=== PATIENT | male | born 1985 | race Caucasian/White ===

== ENCOUNTER 2019-03-15 08:00 | Emergency (ER) | payer OTHER, BC ==
[~2019-03-15] VITALS: Ht 182.9 cm; Wt 111.1 kg
[~2019-03-15 08:00] MED LIST: DIVA500EC; Percocet 10-321 EACH PO
[2019-03-15] MEDS ORDERED: Percocet 5-3251 EACH PO (09:38)
== END 2019-03-15 09:55 | disposition home or self-care (01) ==
LOC: ER 08:00
DX: S43.015A Anterior dislocation of left humerus, initial encounter (principal); W19.XXXA Unspecified fall, initial encounter; Z79.899 Other long term (current) drug therapy
CPT/HCPCS: 23650; 73020; 96374-59; 96375-59; 99283-25; J1170; J2405; J2704; J7030

== ENCOUNTER 2022-08-18 05:23 | Emergency (ER) | payer OTHER ==
[~2022-08-18] VITALS: Ht 182.9 cm; Wt 117.9 kg
[~2022-08-18 05:23] MED LIST changes: +Percocet 5-3251 EACH PO
[2022-08-18 06:18] VITALS: BP 156/78
[2022-08-18] MEDS ORDERED: IBUP600 PO (06:46)
== END 2022-08-18 06:55 | disposition home or self-care (01) ==
LOC: ER 05:23
DX: S43.015A Anterior dislocation of left humerus, initial encounter (principal); X58.XXXA Exposure to other specified factors, initial encounter; Z87.891 Personal history of nicotine dependence
CPT/HCPCS: 23655; 73020; 73030; 96374-59; 99283-25; A9270; J1885; J2270; J2405; J2704; J7030

== ENCOUNTER → 2025-01-19 | Outpatient (CLI) | payer OTHER ==
[~2025-01-19] MED LIST changes: +IBUP600 PO; +OXYC5 PO
[2025-01-19 11:35] LABS: BASOPHILS ABSOLUTE AUTO 0.03 K/mm3 (0.00-0.23); BASOPHILS PERCENT AUTO 1 % (0-2); EOSINOPHILS ABSOLUTE AUTO 0.17 K/mm3 (0.00-0.68); EOSINOPHILS PERCENT AUTO 3 % (0-6); Hematocrit 36.1 % (37.0-53.0); Hemoglobin 12.4 g/dL (13.5-17.5); IMMATURE GRAN ABSOLUTE AUTO 0.02 K/mm3 (0.00-0.10); IMMATURE GRAN PERCENT AUTO 0 % (0-1); LYMPHOCYTES ABSOLUTE AUTO 2.35 K/mm3 (0.84-5.20); LYMPHOCYTES PERCENT AUTO 43 % (21-46); MONOCYTES ABSOLUTE AUTO 0.52 K/mm3 (0.16-1.47); MONOCYTES PERCENT AUTO 9 % (4-13); Mean Corpuscular HGB Conc 34.3 g/dL (31.5-36.5); Mean Corpuscular Volume 90 fL (80-100); NEUTROPHILS ABSOLUTE AUTO 2.43 K/mm3 (1.96-9.15); NEUTROPHILS PERCENT AUTO 44 % (41-73); NRBC ABSOLUTE 0.00 K/mm3 (0.00-0.02); NRBC Auto 0.0 /100 WBC (0.0-0.2); Platelet Count 229 K/mm3 (150-400); RDW Coefficient Variation 12.4 % (11.7-14.2); RDW Standard Deviation 40.8 fL (35.1-46.3)
[2025-01-19 11:52] LABS: Alanine Aminotransfer (ALT/SGP 98 U/L (12-78); Albumin, Blood 3.7 g/dL (3.4-5.0); Albumin/Globulin Ratio 1.3 (0.8-1.8); Anion Gap 13 mmol/L (3-11); Aspartate Aminotrans (AST/SGOT 66 U/L (12-37); Bilirubin, Total 0.6 mg/dL (0.1-1.0); Blood Urea Nitrogen 8 mg/dL (8-24); CHOL/HDL RATIO 4.1; CO2, Blood 28 mmol/L (21-32); Calcium, Blood 9.0 mg/dL (8.5-10.1); Chloride, Blood 103 mmol/L (98-108); Cholesterol 168 mg/dL (50-200); Creatinine, Blood 0.91 mg/dL (0.60-1.20); Globulin, Blood 2.9 g/dL (2.2-4.0); Glucose, Blood 73 mg/dL (70-99); HDL Cholesterol 41 mg/dL (>39); LDL/HDL RATIO 2.7; Low Density Lipoprotein Chol 110 mg/dL (<110); Potassium, Blood 3.6 mmol/L (3.5-5.5); Sodium, Blood 140 mmol/L (136-145); Thyroid Stimulating Hormone 7.816 uIU/mL (0.360-4.800); Total Protein, Blood 6.6 g/dL (6.4-8.2); Triglycerides 85 mg/dL (30-160); Very Low Density Lipoprot Chol 17 mg/dL (6-32)
[2025-01-19 12:42] LABS: PSA, %Free 18.6 %; PSA, Free 0.109 ng/mL; Prostate Specific Antigen 0.586 ng/mL (0.000-4.000)
[2025-01-21 17:13] LABS: HEPATITIS A ANTIBODY, IGM Negative (Negative); HEPATITIS C AB CIA INTERP Negative (Negative); HEPATITIS C ANTIBODY CIA INDEX <0.02 IV
== END ==
LOC: LAB 11:29 → LAB SHORT 11:29
PROVIDERS: Physician Assistant
DX: R30.0 Dysuria (principal); R53.83 Other fatigue; R63.5 Abnormal weight gain; E03.9 Hypothyroidism, unspecified; R79.89 Other specified abnormal findings of blood chemistry
CPT/HCPCS: 80053; 80061; 80074; 83690; 84153; 84154; 84403; 84439; 84443; 84481; 85025

== ENCOUNTER 2025-01-22 22:51 | Emergency (ER) | payer OTHER ==
[~2025-01-22] VITALS: Ht 182.9 cm; Wt 122.5 kg
[~2025-01-22 22:51] MED LIST changes: -OXYC5 PO
[2025-01-22 23:01] VITALS: BP 176/105
[2025-01-22] MEDS ORDERED: Morphine Sulfate 4 MG/1 ML Injection IV ONE (23:15)
[2025-01-22] MEDS ORDERED: Ketorolac Tromethamine 30mg Vial IV ONE (23:20)
[2025-01-22] MEDS ORDERED: Propofol 10mg/ml 20 ml Vial (Procedural) IV SCH (23:25)
[2025-01-22] MEDS ORDERED: NS 1,000 ML IV SCH (23:25)
[2025-01-22] MEDS ORDERED: FentaNYL Citrate 50 MCG/ML 2 ML Injection IV ONE (23:30)
[2025-01-23] MEDS ORDERED: OXYC5 PO (00:45)
[2025-01-23] MEDS ORDERED: Morphine Sulfate 4 MG/1 ML Injection IV ONE (00:45)
== END 2025-01-23 01:10 | disposition home or self-care (01) ==
LOC: ER 22:51
DX: M24.411 Recurrent dislocation, right shoulder (principal); Z87.891 Personal history of nicotine dependence
CPT/HCPCS: 23650; 73020; 73030; 96361-59; 96374-59; 96375-59; 99283-25; J1885; J2270; J2704; J3010; J7030